=== PATIENT | male | born 1980 | race Hispanic/Latino ===

== ENCOUNTER 2017-03-17 13:44 | Emergency (ER) | payer OTHER ==
[~2017-03-17 13:44] MED LIST: DES50 PO; OLAN15TA17 PO; OLAN5TAB27 PO
--- NOTE | 2017-03-17 15:32 | ED.REPORT ---
HPI-Psychiatric Illness Date of Service March 17, 2017 ED Provider: Maxwell Kuo MD Patient is 37 year old male with a history of paranoid schizophrenia, PTSD and polysubstance abuse who was brought to the ED via PD due to a disturbance call from the neighbors. Per the PD, the patient is having delusions of Osama bin Laden trying to kill him and his immediate family. He believes that his other family members and the PD are in on the plan. Per the PD, the patient is having homicidal ideations. He has been in [place] for the past five years and only recently returned to [facility] four days ago. Nursing Notes Stated Complaint: HOMICIDAL Nursing Notes Reviewed: Yes Allergies: Coded Allergies: No Known Allergies (Verified , 05/08/12) Scheduled OLANZapine-Expunged Drug, Do Not Renew! (OLANZapine-Expunged Drug, Do Not Renew! ) 5 Mg Tablet 5 MG PO DAILY OLANZapine-Expunged Drug, Do Not Renew! (OLANZapine-Expunged Drug, Do Not Renew! ) 15 Mg Tablet 15 MG PO HS Trazodone-Expunged Drug, Do Not Renew! (Trazodone-Expunged Drug, Do Not Renew!) 50 Mg Tab 50 MG PO HSP General Time Seen by MD: 15:29 Chief Complaint Homicidal ideation Hx Obtained From: Police Unable to Obtain Hx: Patient condition, Uncooperative, Mental status Arrived By: Police Onset Occurred: Onset unknown Symptom Duration: Since onset Recent Healthcare: No recent doctor visit, No recent hospitalization Risk-Psychiatric Illness Suicide Risk Stratification Suicide Risk Factors - Adult: : Substance abuse RF Statements: Risk factors reviewed Past Medical History Past Medical History paranoid schizophrenia PTSD polysubstance abuse Smoking History Unknown if Ever Smoker Ambulatory Status Independent Review of Systems Unable to Obtain ROS Patient condition, Uncooperative, Mental status Physical Exam Physical Exam Notes: Limited physical exam due to patient's condition Initial Vital Signs Vital Signs (First) Date Time Temp Pulse Resp B/P Pulse Ox O2 Delivery O2 Flow Rate FiO2 03/17/17 18:10 91 18 148/97 98 Room Air Initial VS: Reviewed General/Constitutional: Awake, Alert Neurologic: Oriented X3, Speech NL, No motor deficits, No sensory deficits Abnormal Thinking / Perception: Positive: Delusions - paranoid PYSCHIATRIC: agitated pacing around room, mumbling to himself Interpretation & Diagnostics Lab Results Interpretation Result Diagram: 03/17/17 1558 03/17/17 1558 Test 03/17/17 15:58 03/17/17 17:57 White Blood Count 10.7th/mm3 (3.8-10.1) Red Blood Count 4.77mil/mm3 (4.40-5.80) Hemoglobin 16.7g/dL (13.8-17.2) Hematocrit 46.5% (41.0-50.0) Mean Corpuscular Volume 97.5fL (81-100) Mean Corpuscular Hemoglobin 35.0pg (27.0-35.0) Mean Corpuscular Hemoglobin Concent 35.9% (32.0-37.0) Red Cell Distribution Width 11.8% (12.3-15.4) Platelet Count 290bil/L (150-400) Neutrophils (%) (Auto) 76.2% (40-74) Lymphocytes (%) (Auto) 14.4% (14-46) Monocytes (%) (Auto) 8.0% (4-12) Eosinophils (%) (Auto) 0.9% (0-5) Basophils (%) (Auto) 0.2% (0-3) Sodium Level 139mEq/L (134-144) Potassium Level 3.8mEq/L (3.5-5.2) Chloride Level 98mEq/L (97-108) Carbon Dioxide Level 23mmol/L (18-29) Blood Urea Nitrogen 8mg/dL (6-20) Creatinine 0.88mg/dL (0.76-1.27) Estimat Glomerular Filtration Rate 104mL/min (>59) Glucose Level 112mg/dL (60-99) Calcium Level 10.4mg/dL (8.5-10.1) Total Bilirubin 0.6mg/dL (0.0-1.2) Aspartate Amino Transf (AST/SGOT) 31U/L (0-50) Alanine Aminotransferase (ALT/SGPT) 36U/L (0-44) Alkaline Phosphatase 80U/L (25-150) Total Protein 8.8g/dL (6.4-8.4) Albumin 4.9g/dL (3.4-5.0) Thyroid Stimulating Hormone (TSH) 0.885uIU/mL (0.450-4.500) Alcohols < 10mg/dL (0-10) Hold Urine Received (Received) Lab Results Interpretation: Tox screen: negative for drugs Re-Eval/Medical Decision Med Decision/Clinical Course 37-year-old male with history of schizophrenia presenting with delusions that Osama bin Laden and is trying to kill himself and his family. He believes everyone is involved in this. He was brought in by police. Patient recently moved back from [place] 4 days ago. He had been there for several years. He will not answer any of my questions. Will not tell me if he has suicidal ideation or homicidal ideation. His urine with no substances. His labs are unremarkable. bridge worker was consulted and recommended [facility] be consulted for possible involuntary admission. Sign out to Dr. Niko Smith pending [facility] evaluation. Re-Evaluation/Progress : Time of Eval: 20:53 Re-Evaluation/Progress Note: Patient would not respond if he has suicidal or homicidal ideations. Consultation : Consulted With: bridge worker Call Returned at: 19:21 Note: Discussed patient with Fide Chiu, who agrees that the patient needs to be hospitalized and evaluated by [facility]. Believe he is a danger to himself and others. Counseled Regarding: Diagnosis, Lab results, Need for admission Discharge & Departure Shift Change Sign-Out Patient Care Transferred: Yes Discussed Complaint(s): Yes Laboratory Evaluation: Lab evaluation discussed Discharge Condition All VS Reviewed: Yes Condition: Stable Referrals: Lawrence Collazo MD (PCP) Care Transferred to: Dr. Smith Care Transferred at: 23:59 Cale Attestation Portions of this note were transcribed by Faina Benedict. I, Dr. Sanjuanita Smith personally performed the history, physical exam and medical decision-making; I reviewed and confirmed the accuracy of the information in the transcribed note. Signed by: Cale Perea, 03/17/17 and 4108 copies to: Lawrence Collazo MD, Ben M MD March 17, 2017 15:32 Moriah Benedict March 17, 2017 16:02
[2017-03-17 16:04] LABS: BASOPHILS % (AUTO) 0.2 % (0-3); EOSINOPHILS % (AUTO) 0.9 % (0-5); Mean Corpuscular Volume 97.5 fL (81-100); NEUTROPHILS % (AUTO) 76.2 % (40-74); Platelet Count 290 bil/L (150-400)
[2017-03-17 18:10] VITALS: BP 148/97; PULSE 91; RESP 18; O2SAT 98
[2017-03-17 19:50] VITALS: RESP 16
[2017-03-18 00:31] LABS: APPEARANCE,URINE HAZY (CLEAR,HAZY); COLOR,URINE DARK YELLOW (YELLOW)
[2017-03-18 00:32] LABS: OCCULT BLOOD,URINE NEGATIVE (NEGATIVE); UROBILINOGEN,URINE NORMAL (NORMAL)
== END 2017-03-18 01:47 | disposition other institution (70) ==
LOC: SED 13:44
DX: F20.0 Paranoid schizophrenia (principal); R45.850 Homicidal ideations; F19.20 Other psychoactive substance dependence, uncomplicated; F43.10 Post-traumatic stress disorder, unspecified; Z91.19 Patient's noncompliance with other medical treatment and regimen
CPT/HCPCS: 36415; 80053; 81000; 81002; 84443; 85025; 99285; G0480